=== PATIENT | female | born 1985 | race Two or more races ===

== ENCOUNTER 2018-03-04 09:27 | Emergency (ER) | payer SELFPAY ==
[~2018-03-04] VITALS: Ht 157.5 cm; Wt 48.6 kg
[2018-03-04 10:47] VITALS: BP 120/67
== END 2018-03-04 11:51 | disposition home or self-care (01) ==
LOC: EMS 09:29
DX: H66.91 Otitis media, unspecified, right ear (principal); F12.90 Cannabis use, unspecified, uncomplicated; F17.210 Nicotine dependence, cigarettes, uncomplicated
CPT/HCPCS: 99283

== ENCOUNTER 2021-11-01 16:17 | Emergency (ER) | payer OTHER ==
[~2021-11-01] VITALS: Ht 157.5 cm; Wt 54.5 kg
[2021-11-01] MEDS ORDERED: GUAIF10 PO (16:19)
[2021-11-01 18:29] VITALS: BP 110/63
[2021-11-01] MEDS ORDERED: MAGIC240 PO (18:47)
[2021-11-02 08:07] LABS: HIV 1-2 SCREEN 4TH GEN W/RFLX Non Reactive (Non Reactive)
== END 2021-11-01 18:56 | disposition home or self-care (01) ==
LOC: EMS 16:25
DX: J02.9 Acute pharyngitis, unspecified (principal); R21 Rash and other nonspecific skin eruption; F17.210 Nicotine dependence, cigarettes, uncomplicated; F12.90 Cannabis use, unspecified, uncomplicated
CPT/HCPCS: 86592; 87389; 99283